=== PATIENT | female | born 1985 | race Caucasian/White ===

== ENCOUNTER → 2016-08-04 | Outpatient (CLI) | payer BC ==
[2016-08-04 11:15] LABS: HEMATOCRIT 43.3 % (37.0-47.0); HEMOGLOBIN 14.8 g/dL (12.0-16.0); MEAN CORPUSCULAR HEMOGLOBIN 29.7 PG (27-31); MEAN CORPUSCULAR HGB CONC 34.2 g/dL (33-37); RDW COEFFICIENT OF VARIATION 13.1 % (11.5-14.5); RED BLOOD COUNT 4.98 10^6/uL (4.20-5.40); WHITE BLOOD COUNT 5.96 10^3/uL (4.8-10.8)
[2016-08-04 12:31] LABS: ASPARTATE AMINO TRANSFERASE 35 IU/L (8-39); BILIRUBIN,TOTAL 1.1 mg/dL (0.3-1.2); BLOOD UREA NITROGEN 13 mg/dL (7-22); BUN/CREATININE RATIO 18.57 (6-20); CALCIUM 9.1 mg/dL (8.7-10.7); CHLORIDE 105 meq/L (98-112); CREATININE 0.7 mg/dL (0.50-1.20); EST GLOMERULAR FILTRATION > 60 (>60 ml/min/1.73m(2)); GLUCOSE 74 mg/dL (78-110); POTASSIUM 4.5 meq/L (3.8-5.2); SODIUM 140 meq/L (135-145); TOTAL PROTEIN 7.7 g/dL (6.1-8.0)
[2016-08-08 07:41] LABS: HEMOGLOBIN A1C 5.2 % (4.2-6.0); MEAN BLOOD GLUCOSE (CALC) 87.16 mg/dL
[2016-08-08 07:42] LABS: FREE T4 (FREE THYROXINE) 1.4 ng/dL (0.93-1.71)
== END ==
LOC: LAB 10:58
PROVIDERS: ATTEND Family Medicine
DX: Z00.00 Encounter for general adult medical examination without abnormal findings (principal); L70.9 Acne, unspecified; L67.8 Other hair color and hair shaft abnormalities; R63.5 Abnormal weight gain; Z83.3 Family history of diabetes mellitus
CPT/HCPCS: 36415; 80053; 80061; 83001; 83002; 83036; 84403; 84439; 84443; 85027

== ENCOUNTER → 2016-08-09 | Outpatient (CLI) | payer BC ==
--- NOTE | 2016-08-10 09:28 | DI ---
History: Evaluate ovaries for polycystic configuration. Prior study: None recent. Procedure study performed using an 8 MHz transducer transvaginally. Findings: Right ovary is 3 x 3.5 x 5.3 cm with good perfusion of the left ovary is 3.5 x 3.6 x 4.9 cm again with good perfusion. No free fluid identified. Uterus is retroverted. Impression: No ultrasonographic evidence of polycystic ovarian syndrome. There are a few subcentimete r follicles identified. No other findings
== END ==
LOC: US 08-04 10:55
PROVIDERS: ATTEND Family Medicine
DX: E28.2 Polycystic ovarian syndrome (principal)
CPT/HCPCS: 76857